=== PATIENT | female | born 1980 | race Caucasian/White ===

== ENCOUNTER 2021-06-08 14:43 | Outpatient (CLI) | payer OTHER, SELFPAY ==
[2021-06-08 15:34] LABS: Basophils Absolute Auto 0.1 K/mm3 (0.0-0.1); Eosinophils Absolute Auto 0.2 K/mm3 (0-0.3); Eosinophils Percent Auto 2.4 % (0-4.4); Hematocrit 38.6 % (37.0-47.0); Hemoglobin 12.2 g/dL (12.0-15.0); Immature Granulocyte Absolute 0.03 K/mm3 (0.00-0.031); Immature Granulocyte Percent A 0.4 % (0-0.5); Lymphocytes Absolute Auto 1.67 K/mm3 (0.9-3.2); Lymphocytes Percent Auto 21.5 % (18.3-44.2); Mean Corpuscular HGB Conc 31.6 g/dl (32-36); Mean Corpuscular Volume 88.5 fl (80-100); Mean Platelet Volume 11.9 fl (7.4-10.4); Monocytes Absolute Auto 0.7 K/mm3 (0.1-0.6); Monocytes Percent Auto 9.3 % (2.6-8.5); Neutrophils Absolute Auto 5.1 K/mm3 (1.3-6.7); Neutrophils Percent Auto 65.4 % (45.5-73.1); Platelet Count Result 282 k/mm3 (150-375); Red Blood Count 4.36 M/mm3 (4.2-5.4); White Blood Count 7.8 K/mm3 (4.5-10.0)
[2021-06-08 15:59] LABS: Alanine Aminotransferase 18 U/L (4-35); Albumin Level 4.4 g/dL (3.5-5.1); Alkaline Phosphatase 61 U/L (38-126); Anion Gap 9 mmol/L (8-16); Aspartate Amino Transferase 30 U/L (14-36); Bilirubin,Total 0.4 mg/dL (0.2-1.3); Blood Urea Nitrogen 15 mg/dL (7-17); Calcium 9.4 mg/dL (8.4-10.2); Carbon Dioxide 30 mmol/L (22-30); Chloride 100 mmol/L (98-107); Estimated Glomerular Filt Rate > 60; Glucose 85 mg/dL (65-110); Potassium 3.9 mmol/L (3.4-5.0); Sodium 139 mmol/L (137-145)
== END 2021-06-08 14:44 | disposition home or self-care (01) ==
PROVIDERS: PCP Nurse Practitioner Family; Visit Provider Nurse Practitioner Family
DX: Z00.00 Encounter for general adult medical examination without abnormal findings (principal)
CPT/HCPCS: 36415; 80053; 84443; 85025

== ENCOUNTER 2022-01-17 07:16 | Outpatient (CLI) | payer OTHER, SELFPAY ==
--- NOTE | ~2022-01-17 | MM_ITS ---
EXAMINATION: MM screening addis BI w ramírez HISTORY: Screening TECHNIQUE: Craniocaudal and mediolateral oblique 3-D tomosynthesis images were obtained and synthetic 2-D images were generated. CAD analysis was submitted and interpreted. COMPARISON: No prior mammogram is available for comparison at this institution. BREAST PARENCHYMAL COMPOSITION: The breasts are heterogenously dense, which may obscure small masses FINDINGS: There are bilateral breast calcifications, likely benign. There is no evidence of suspiciou s mass, calcification, or architectural distortion to suggest malignancy in either breast. There has been no suspicious interval change. IMPRESSION: 1. Likely benign bilateral breast calcifications. 2. Comparison to previous outside mammograms recommended. BI-RADS Category 0: Incomplete: Needs additional imaging evaluation. Reviewed, dictated and finalized at location A. ICAL PHARMACIST
== END 2022-01-17 07:17 | disposition home or self-care (01) ==
PROVIDERS: PCP Nurse Practitioner Family; Visit Provider Obstetrics & Gynecology
DX: Z12.31 Encounter for screening mammogram for malignant neoplasm of breast (principal); R92.8 Other abnormal and inconclusive findings on diagnostic imaging of breast
CPT/HCPCS: 77063; 77067

== ENCOUNTER 2022-02-08 00:29 | Day surgery (SDC) | payer OTHER, SELFPAY ==
[2022-01-26 14:55] VITALS: BMI 29.6
[2022-02-08 06:17] VITALS: BP 149/73; PULSE 81; RESP 16; TEMP 36.2; O2SAT 96; BMI 29.7
[2022-02-08] MEDS: LACTATED RINGERS 1,000 ML 150 ML IV CONT (06:35)
--- NOTE | 2022-02-08 07:16 | PM.HPGS ---
History of Present Illness History of Present Illness Consent: Risks, benefits, and alternatives have been discussed and questions answered. Patient agrees to proceed with procedure. Chief complaint: urbina's esophagus Narrative: Venecia White is a 42 year old female with gerd controlled with pantoprazole (will have symptom if skips a dose), last EGD 3 years ago. Review of Systems Constitutional: Constitutional: Denies headache(s) and Denies weakness Eyes: Eyes: Denies blurry vision ENT: Reports Normal hearing present, Denies headache(s) and Denies neck pain Cardiovascular: Cardiovascular: Denies chest pain and Denies dyspnea Respiratory: Respiratory: Denies dyspnea Gastrointestinal: Gastrointestinal: Reports no additional gastrointestinal complaints Genitourinary: Genitourinary: Denies dysuria Musculoskeletal: Musculoskeletal: Denies neck pain Integumentary/Breasts: Skin/Breast: Denies dry skin Neurologic: Reports Normal hearing present, Denies headache(s) and Denies weakness Psychiatric: Psychiatric: Denies anxiety Endocrine: Endocrine: Denies change in body appearance Hematologic/Lymphatic: Hematologic/Lymphatic: Denies easy bleeding Allergic/Immunologic: Allergic/Immunologic: Denies urticaria PMF Past Medical History Medical History (Updated 02/08/22 @ 07:16 by Polo Quintero MD) GERD (gastroesophageal reflux disease) Surgical History Surgical History History of hysterectomy (~2012) Family History Family History Mother Hypertension Grandparent Diabetes mellitus Grandparent Esophageal cancer maternal grandmother Social History Social History Smoking status: Never smoker Alcohol intake: current Alcohol use details: occasionnaly Substance use: never Substance use type: does not use Living arrangements: with family Gender identity (if verbalized by the patient): Female Spiritual care concerns: No Meds Home Medications and Allergies Home Medications Medication Instructions Recorded Confirmed Type cholecalciferol (vitamin D3) 50 50 mcg PO DAILY 06/07/21 02/08/22 History mcg (2,000 unit) capsule pantoprazole 40 mg tablet,delayed 40 mg PO QAM 90 Days #90 tablet 12/22/21 02/08/22 Rx release Allergies Allergy/AdvReac Type Severity Reaction Status Date / Time No Known Allergies Allergy Unknown Verified 02/08/22 06:25 Vital Signs Vital Signs - 24 hr 02/08/22 06:17 Temperature 97.2 F L Pulse Rate 81 Respiratory Rate 16 Blood Pressure 149/73 H Pulse Oximetry 96 Exam Const: General: comfortable and no acute distress HENMT: General nose exam: Normal nares present Eyes: General: appearance normal, both eyes and all related structures Neck: Neck: no JVD Resp: Auscultation: clear to auscultation bilaterally Cardio: Rate: regular rate Rhythm: regular rhythm GI: Inspection: non-distended GI Palp: Yes Soft to palpation Skin: General skin exam: normal color Neuro: General: gait normal Speech: normal speech Extrem: General: normal to inspection Psych: Mental Status: mental status grossly normal Assessment and Plan Assessment and plan (1) GERD (gastroesophageal reflux disease): Qualifiers: Esophagitis presence: esophagitis presence not specified Qualified Code(s): K21.9 - Gastro-esophageal reflux disease without esophagitis Code(s): K21.9 - Gastro-esophageal reflux disease without esophagitis Status: Acute Assessment and Plan: egd with bx, already on ppi.
--- NOTE | 2022-02-08 07:22 | P.PNAN_ITS ---
Anes - Initial Pre Proc Eval Procedure: Operation Date: 02/08/22 07:30 Proposed Procedures p Esophagogastroduodenoscopy - Polo Quintero MD Date/Time: 02/08/22 07:22 Surgeon: Polo Quintero MD Pre Op Diagnosis: urbina's esophagus Patient Data Age: 42 Gender: F Height: 1.6 m Weight: 76.3 kg Last Vital Signs Temp 97.2 F L 02/08/22 06:17 Pulse 81 02/08/22 06:17 Resp 16 02/08/22 06:17 BP 149/73 H 02/08/22 06:17 Pulse Ox 96 02/08/22 06:17 Allergies Allergy/AdvReac Type Severity Reaction Status Date / Time No Known Allergies Allergy Unknown Verified 02/08/22 06:25 Home Medications Medication Instructions Recorded Confirmed Type cholecalciferol (vitamin D3) 50 50 mcg PO DAILY 06/07/21 02/08/22 History mcg (2,000 unit) capsule pantoprazole 40 mg tablet,delayed 40 mg PO QAM 90 Days #90 tablet 12/22/21 02/08/22 Rx release Patient hx anesthesia problems: none Family hx anesthesia problems: none Results Review: All pre-operative results and documents have been reviewed as part of the pre-operative evaluation. [facility] Past Medical History Medical History (Updated 02/08/22 @ 07:16 by Polo Quintero MD) GERD (gastroesophageal reflux disease) Surgical History Surgical History History of hysterectomy (~2012) Family History Family History Mother Hypertension Grandparent Diabetes mellitus Grandparent Esophageal cancer maternal grandmother Social History Social History Smoking status: Never smoker Alcohol intake: current Alcohol use details: occasionnaly Substance use: never Substance use type: does not use Living arrangements: with family Gender identity (if verbalized by the patient): Female Spiritual care concerns: No Anes - Eval Final PreProcedure Day of Procedure 02/08/22 07:22 Patient weight: overweight Heart: regular rate and rhythm Lungs: clear to auscultation Airway: Mallampati scale class II Neurological: alert and oriented Last oral intake: >/= 8 hours ASA classification: II Emergent: no Anesthetic plan: proceed Anesthesia type and monitoring: general GIVS and standard monitoring Results Review: All pre-operative results and documents have been reviewed as part of the pre-operative evaluation. Informed Consent: The patient's anesthetic plan and its attendant risks and benefits were discussed with the patient/family/POA. Questions were solicited and answers provided to the satisfaction of the patient/family/POA.
[2022-02-08 07:41] VITALS: BP 105/64; PULSE 79; RESP 17; O2SAT 99
[2022-02-08 07:51] VITALS: BP 125/83; PULSE 71; RESP 18; O2SAT 99
[2022-02-08 08:01] VITALS: BP 134/84; PULSE 74; RESP 17; O2SAT 100
== END 2022-02-08 08:11 | disposition home or self-care (01) ==
PROVIDERS: PCP Nurse Practitioner Family; Visit Provider Internal Medicine Gastroenterology
PROC: 0DJ08ZZ Inspection of Upper Intestinal Tract, Via Natural or Artificial Opening Endoscopic (ICD-10-PCS; CPT 43235; principal; 2022-02-08 07:30)
DX: K21.9 Gastro-esophageal reflux disease without esophagitis (principal); K44.9 Diaphragmatic hernia without obstruction or gangrene; K29.50 Unspecified chronic gastritis without bleeding
CPT/HCPCS: 43239; 88305; J2001; J2704; J7120

== ENCOUNTER → 2022-02-14 08:39 | Outpatient (CLI) | payer OTHER, SELFPAY ==
--- NOTE | ~2022-02-14 | MMUS_ITS ---
EXAMINATION: MM diagnostic addis RT w ramírez, US breast RT complete HISTORY: Follow-up right breast asymmetries TECHNIQUE: Additional 3-D tomosynthesis images of the right breast were performed and synthetic 2-D i mages were generated. CAD analysis was submitted and interpreted. High resolution complete right [address] ultrasound was performed. COMPARISON: 01/17/2022 and 01/11/2021 BREAST PARENCHYMAL COMPOSITION: The breasts are heterogenously dense, which may obscure small masses FINDINGS: MAMMOGRAPHIC FINDINGS: There are persistent asymmetries in the upper central right breast which appear new. No suspicious ca lcifications or architectural distortion. ULTRASOUND: Complete right US of all 4 quadrants of the right breast and retroareolar region was reviewed. At 12: 00, 9 cm from the nipple there is heterogeneous soft tissue without discrete mass. At 10:00, 8 cm fro m the nipple there is an oval circumscribed hypoechoic mass with parallel orientation, no posterior f eatures and no internal vascularity measuring 8 mm maximum dimension. At 11:00, 5 cm from the nipple there is a 7 mm mass with some angular margins and internal echogenic foci, possibly calcification. T here is mixed posterior attenuation. No internal vascularity. IMPRESSION: 1. Slightly irregular shaped hypoechoic right breast mass at 11:00, 5 cm from the nipple measuring 7 mm. Remainder of the findings in the right breast by ultrasound are likely benign. Six-month follow-u p right mammogram and ultrasound recommended to assess stability of these structures. 2. Ultrasound-guided right breast biopsy recommended. BI-RADS category 4, suspicious findings. Reviewed, dictated and finalized at location A. IMPRESSION: 1. Slightly irregular shaped hypoechoic right breast mass at 11:00, 5 cm from t he nipple measuring 7 mm. Remainder of the findings in the right breast by ultr asound are likely benign. Six-month follow-up right mammogram and ultrasound re commended to assess stability of these structures. 2. Ultrasound-guided right breast biopsy recommended. BI-RADS category 4, suspicious findings.
== END ==
PROVIDERS: PCP Nurse Practitioner Family; Visit Provider Obstetrics & Gynecology
DX: R92.8 Other abnormal and inconclusive findings on diagnostic imaging of breast (principal)
CPT/HCPCS: 76641; 77061; 77065; G0279

== ENCOUNTER 2022-03-01 09:13 | Outpatient (CLI) | payer OTHER, SELFPAY ==
--- NOTE | ~2022-03-01 | MMUS_ITS ---
EXAMINATION: US GUIDED NEEDLE BIOPSY DATE: 03/01/2022 11:26 CDT INDICATION: Slightly irregularly-shaped hypoechoic 11:00 right 7 mm breast mass TECHNIQUE AND FINDINGS: The risks and potential benefits of the procedure were discussed with the patient, and written inform ed consent was obtained. Timeout procedure was performed. After sterile preparation of the right [address], 1% lidocaine was utilized for local anesthesia. A 14G spring-loaded biopsy gun needle was advanced to the edge of the region of interest from a super omedial approach utilizing sonographic guidance. A total of three tissue core samples were obtained through the lesion. An Inrad tissue marker clip was then placed at the biopsy site. Hemostasis was a chieved. A sterile bandage was applied. The patient tolerated procedure well and there was no evidence of immediate complication. The patien t was given verbal instructions prior to departing from the department. A two view mammogram was perf ormed to document tissue marker clip placement. The tissue samples were submitted to surgical patholo gy for histologic analysis. IMPRESSION: 1. Successful ultrasound guided biopsy of right 11:00 breast mass with biopsy marker placement. Plea se refer to pathology report for histologic analysis. Reviewed, dictated and finalized at Location [facility]. Reviewed, dictated and finalized at location A. IMPRESSION: 1. Successful ultrasound guided biopsy of right 11:00 breast mass with biopsy marker placement. Please refer to pathology report for histologic analysis.
== END 2022-03-01 09:14 | disposition home or self-care (01) ==
LOC: ANHIMG 09:14
PROVIDERS: PCP Nurse Practitioner Family; Visit Provider Surgery
DX: N63.10 Unspecified lump in the right breast, unspecified quadrant (principal)
CPT/HCPCS: 19083; 88305; A4648

== ENCOUNTER 2023-08-21 08:17 | Outpatient (CLI) | payer OTHER, SELFPAY ==
--- NOTE | ~2023-08-21 | MM_ITS ---
EXAMINATION: MM screening addis BI w ramírez HISTORY: Screening mammogram TECHNIQUE: Craniocaudal and mediolateral oblique 3-D tomosynthesis images were obtained and synthetic 2-D images were generated. CAD analysis was submitted and interpreted. COMPARISON: March 01, 2022 right ultrasound-guided breast biopsy at 11:00 February 14, 2022 diagnostic right mammogram and complete right breast ultrasound examination January 17, 2022, January 11, 2021 bilateral screening mammogram examinations BREAST PARENCHYMAL COMPOSITION: There are scattered areas of fibroglandular density. FINDINGS: There is a biopsy marker on the right. There is a biopsy marker on the left. No history of malignancy of either breast. Numerous grouped circulation oval benign-appearing microcalcifications are noted in the posterior upp er outer left breast. There is no evidence of suspicious mass, calcification, or architectural distor tion to suggest malignancy in either breast. There has been no suspicious interval change. IMPRESSION: 1. Benign findings. No mammographic evidence of malignancy. 2. Recommend routine screening mammography in one year. BI-RADS Category 2: Benign finding(s). Reviewed, dictated and finalized at location A.
== END 2023-08-21 08:18 | disposition home or self-care (01) ==
LOC: ANHIMG 08:18
PROVIDERS: Visit Provider Obstetrics & Gynecology
DX: Z12.31 Encounter for screening mammogram for malignant neoplasm of breast (principal)
CPT/HCPCS: 77063; 77067

== ENCOUNTER → 2023-08-29 15:21 | Outpatient (CLI) | payer OTHER, SELFPAY ==
--- NOTE | ~2023-08-29 | XR_ITS ---
XR knee LT 3V DATE: 08/29/2023 15:42 INDICATION: Posterior knee pain. No known injury. TECHNIQUE: AP, lateral, sunrise views COMPARISON: None FINDINGS: No fracture or dislocation or joint effusion. No periosteal reaction or bone destruction. J oint spaces are well preserved. No radiopaque intra-articular loose body or chondrocalcinosis. IMPRESSION: Negative Reviewed, dictated and finalized at location A. IMPRESSION: Negative
== END ==
PROVIDERS: PCP Nurse Practitioner Family; Visit Provider Nurse Practitioner Family
DX: M25.562 Pain in left knee (principal)
CPT/HCPCS: 73562

== ENCOUNTER 2023-11-02 15:00 | Outpatient (RCR) | payer OTHER, SELFPAY ==
--- NOTE | 2023-09-07 09:57 | OPREHPOC ---
Outpatient Therapy Plan of Care This is a Multidisciplinary Plan of Care that may contain components documented by all disciplines (PT, OT, and ST.) PT Problem 1 PT Problem #1 Knowledge Deficit PT Goal 1 Goal 1. Patient will perform independent HEP 2. Patient will verbalize urge suppression techniques. Target Visit 9 PT Problem 2 PT Problem #2 Pain PT Goal 1 Goal 1. Patient able to do all ADL's with knee pain no higher than 1/10 2. No pain with pelvic exam Target Visit 9 PT Problem 3 PT Problem #3 Impaired Strength PT Goal 1 Goal 1. Improve pelvic floor strength to 3/5 and endurance to 10 seconds to decrease incontinence 2. Improve all LE MMT to 5/5 to support knee with stairs and other activities Target Visit 9 PT Problem 4 PT Problem #4 Impaired Functional ADLs PT Goal 1 Goal 1. Patient will report no more than 1 instance of incontinence per month Target Visit 9
--- NOTE | 2023-09-07 09:57 | PTOPEVAL1 ---
Assessment and note entered by Dina Alston DPT Evaluation Information Assessment Status Evaluation Subjective Information Pt reports she is having incontinence and left knee pain. Pt reports incontinence since her hysterectomy 10 years ago but is worsening. Incontinence happens daily and is a few drops at a time- has been occurring with coughing, sneezing, laughing, running. Voids 10 times a day and 1 time at night. Denies pain with urination. Can hold urge 5 minutes before needing to void. Wears pads occasionally and has had to change clothes due to the incontinence. BM every other day, states she does have some constipation issues. Denies pain or fecal incontinence. Denies history of pelvic pain. Pt has been 2 times with vaginal deliveries and no complications. Pt reports feeling anxiety about the incontinence and will void before certain activities, has had to leave meetings due to the incontinence. Pt reports left knee pain 4-5/10 highest and lowest 1/10 recently. Pain started a few weeks ago . Has been working out with a puppy trainer and increasing the weights she has been lifting. Within the last few weeks she lifted her leg up and down off the couch and noticed 2 pops, states they were very painful at the time. Has had x-rays which were negative. Pain increases with general movement even a few minutes on a bike or navigating stairs. Also reports it feels weaker and less stable than her other side. Patient goal: less incontinence and feel less anxiety around it. Decrease knee pain and get back to normal level of working out and walking for exercise. Reported Pain Level Pain Score 2: Self Report Assessment PT Clinical Summary The patient is presenting to skilled therapy with urinary incontinence and pelvic pain on exam as well as left knee pain. She presents with significantly decreased pelvic floor strength/ endurance and increased muscle tone, as well as decreased LE strength and functional strength impairments which are contributing to her incontinence and knee pain with activities like navigating stairs. She will highly benefit from therapy to address these impairments in order to reduce pain, reduce
--- NOTE | 2023-10-06 10:35 | OPREHPOC ---
Outpatient Therapy Plan of Care This is a Multidisciplinary Plan of Care that may contain components documented by all disciplines (PT, OT, and ST.) PT Problem 1 PT Problem #1 Knowledge Deficit PT Goal 1 Goal 1. Patient will perform independent HEP 2. Patient will verbalize urge suppression techniques. Target Visit 9 Progress Partially Met PT Problem 2 PT Problem #2 Pain PT Goal 1 Goal 1. Patient able to do all ADL's with knee pain no higher than 1/10 2. No pain with pelvic exam Target Visit 9 Progress Partially Met PT Problem 3 PT Problem #3 Impaired Strength PT Goal 1 Goal 1. Improve pelvic floor strength to 3/5 and endurance to 10 seconds to decrease incontinence 2. Improve all LE MMT to 5/5 to support knee with stairs and other activities Target Visit 9 Progress Partially Met Comment all met except left knee flexion and hip extension roberto carlos PT Problem 4 PT Problem #4 Impaired Functional ADLs PT Goal 1 Goal 1. Patient will report no more than 1 instance of incontinence per month Target Visit 9 Progress Partially Met Comment 1-2 in the last week
--- NOTE | 2023-10-06 10:36 | PTOPPROG ---
Assessment and note entered by Dina Alston DPT Evaluation Information Assessment Status Progress Subjective Information Pt reports she has had 2 instances of popping in her posterior knee in the past week but it is not as significantly painful as it was originally. Highest pain in the last week 2/10 and lowest 0/10 . Overall is feeling better with therapy, her pain has decreased and she is not having to take OTC meds anymore. Has not tried to go to the gym in the past few weeks. Doing her normal ADL's except trying to avoid heavier lifting. States she sneezed yesterday without any incontinence. 1-2 instances of incontinence in the last week and very small volumes. Can hold urge to void at least 30 minutes. Assessment PT Clinical Summary The patient has made good progress overall in therapy. She reports decreased knee pain and demonstrates improved LE strength and stair pattern. She continues to have some tenderness to palpation and hamstring weakness contributing to her pain and difficulty performing all activities like heavy lifting and returning to exercise. She also reports greatly decreased frequency and volume of incontinence and demonstrates improved pelvic floor strength and endurance. Due to her progress plan to continue therapy to focus primarily on knee pain and return to full function . Plan of Care Interventions Electrical Stimulation,Gait Training,Hot Pack/Cold Pack,Manual Therapy,Neuro Re-education,Patient/ Caregiver Education,Therapeutic Activities, Therapeutic Exercise PT Services Indicated Yes Treatment Frequency and 1-2 times a week for 4-8 visits Duration These treatments will address the objective and functional deficits as defined above. The patient will be advanced safely and appropriately in order for the patient to progress towards his/her prior level of function. Additional exercises will be introduced and as well as a comprehensive home exercise program upon discharge, if needed, ?to ensure carryover of functional gains achieved in the clinic. This treatment plan has been reviewed and agreement upon by the patient.
--- NOTE | 2023-10-27 08:56 | PCPTNOTE ---
Patient called to cancel appointment 10/27/23 due to work conflict.
--- NOTE | 2023-11-02 15:29 | OPREHPOC ---
Outpatient Therapy Plan of Care This is a Multidisciplinary Plan of Care that may contain components documented by all disciplines (PT, OT, and ST.) PT Problem 1 PT Problem #1 Knowledge Deficit PT Goal 1 Goal 1. Patient will perform independent HEP 2. Patient will verbalize urge suppression techniques. Target Visit 9 Progress Met PT Problem 2 PT Problem #2 Pain PT Goal 1 Goal 1. Patient able to do all ADL's with knee pain no higher than 1/10 2. No pain with pelvic exam Target Visit 9 Progress Partially Met PT Problem 3 PT Problem #3 Impaired Strength PT Goal 1 Goal 1. Improve pelvic floor strength to 3/5 and endurance to 10 seconds to decrease incontinence 2. Improve all LE MMT to 5/5 to support knee with stairs and other activities Target Visit 9 Progress Partially Met Comment all met except hip extension roberto carlos PT Problem 4 PT Problem #4 Impaired Functional ADLs PT Goal 1 Goal 1. Patient will report no more than 1 instance of incontinence per month Target Visit 9 Progress Partially Met
--- NOTE | 2023-11-02 15:29 | PTOPDC ---
Assessment and note entered by Dina Alston DPT Evaluation Information Assessment Status Discharge Subjective Information Highest pain 2/10 in the last week and lowest 0/10 . States she has been able to get back to the gym more consistently and is noticing her pain much less often, just with deep flexion like to get in/ out of her high bed. Also reports her incontinence has improved, sneezed 3 times earlier without incontinence. Reported Pain Level Pain Score 0: Self Report Assessment PT Clinical Summary The patient has made excellent progress in therapy and reports greatly decreased intensity and frequency of pain. She has been able to perform all activities including exercising. She demonstrates improved walking speed, LE strength, and stair pattern. She also reports greatly decreased urinary incontinence. Due to her progress, plan to discharge to [facility] this visit. She has been educated to follow up with PT and/or MD as needed. Plan of Care PT Services Indicated No
== END 2023-11-02 16:03 | disposition home or self-care (01) ==
LOC: ANHPT 15:00
PROVIDERS: PCP Nurse Practitioner Family; Referring Provider Nurse Practitioner Family; Visit Provider Obstetrics & Gynecology
DX: R10.2 Pelvic and perineal pain (principal); M25.562 Pain in left knee
CPT/HCPCS: 97110; 97112; 97140; 97161; 97530

== ENCOUNTER 2024-02-02 08:47 | Emergency (ER) | payer OTHER, SELFPAY ==
--- NOTE | 2024-02-02 08:49 | ED.URI ---
HPI - URI/Sore Throat General Chief Complaint: Upper Respiratory Infection Stated Complaint: Cough/Fatigue Time Seen by Provider: 02/02/24 08:48 Source: patient Mode of arrival: ambulatory Limitations: no limitations History of Present Illness HPI Narrative: Patient is a 44-year-old female that presents with cough, fatigue, sore throat. Patient was diagnosed with COVID 2 weeks ago, did have a few days of feeling normal before symptoms restarted. She patient has been taking [id number] medications with no relief. Denies any fever, chills, nausea, vomiting, diarrhea. Patient is a home health nurse. Related Data Home Medications Medication Instructions Recorded Confirmed cholecalciferol (vitamin D3) 50 50 mcg PO DAILY 06/07/21 02/02/24 mcg (2,000 unit) capsule Allergies Allergy/AdvReac Type Severity Reaction Status Date / Time No Known Allergies Allergy Unknown Verified 02/02/24 08:58 Review of Systems Review of Systems: All systems reviewed & are unremarkable except as noted in HPI and below Constitutional: Constitutional: Denies body ache(s), Denies chills, Reports fatigue, Denies fever(s), Denies headache(s), Denies malaise and Denies weakness Eyes: Eyes: Denies blurry vision, Denies itchy eyes and Denies loss of vision ENT: Denies otalgia, Denies headache(s), Denies nasal congestion, Denies sinus pain and Reports sore throat Cardiovascular: Cardiovascular: Denies chest pain, Denies irregular heart rhythm and Denies dyspnea Respiratory: Respiratory: Reports cough and Denies dyspnea Gastrointestinal: Gastrointestinal: Denies abdominal pain, Denies diarrhea, Denies nausea and Denies vomiting Musculoskeletal: Musculoskeletal: Denies back pain, Denies myalgias and Denies arthralgias Integumentary/Breasts: Skin/Breast: Denies pruritus and Denies rash Neurologic: Denies headache(s), Denies loss of vision and Denies weakness Psychiatric: Psychiatric: Reports no additional psychiatric complaints Endocrine: Endocrine: Denies fatigue Allergic/Immunologic: Allergic/Immunologic: Denies itchy eyes PMFSH Past Medical History Medical History GERD (gastroesophageal reflux disease) Surgical History Surgical History History of hysterectomy (~2012) Hx of left breast biopsy Left breast biopsy x2 (benign) January 2020 Family History Family History Mother Hypertension Grandparent Diabetes mellitus Grandparent Esophageal cancer maternal grandmother Grandparent Non Hodgkin's lymphoma Hypertension Social History Social History Smoking status: Former smoker Alcohol intake: current Alcohol use details: occasionnaly Substance use: never Substance use type: does not use Lack of Transportation: No Lack of Food: Never True Current Housing: I Have Housing Concerned About Future Housing: No Difficulty Paying Gas/Electric Bills: No Difficulty Paying for Meds: No Currently Unemployed: No Education: Bachelor's Degree Difficulty w/ Childcare or Family Care: No Living arrangements: alone Occupation/Education: occupation Additional occupation/education comments: RN Gender identity (if verbalized by the patient): Female Spiritual care concerns: No Agree to blood products: Yes Comments At time of signature, agree with nursing past medical, surgical, social and family history. There is no relevant family history pertinent to the presenting complaint. Exam Const: General: cooperative, healthy appearing, comfortable, no acute distress and well nourished Nutritional Appearance: well nourished Orientation/consciousness: patient oriented x3 Limitations: no limitations HENMT: Head: normal to inspection, normocephalic and atraumatic Ears: hearing g
[2024-02-02 08:57] VITALS: BP 118/84; PULSE 97; RESP 16; TEMP 36.6; O2SAT 100
[2024-02-02 08:58] VITALS: BP 118/84; PULSE 97; RESP 16; TEMP 36.6; O2SAT 100
== END 2024-02-02 09:44 | disposition home or self-care (01) ==
PROVIDERS: Emergency Provider Nurse Practitioner Family
DX: J06.9 Acute upper respiratory infection, unspecified (principal); Z87.891 Personal history of nicotine dependence; K21.9 Gastro-esophageal reflux disease without esophagitis
CPT/HCPCS: 87804; 99213; G0463

== ENCOUNTER 2024-09-10 08:28 | Emergency (ER) | payer OTHER, SELFPAY ==
--- NOTE | 2024-09-10 08:33 | ED.URI ---
HPI - URI/Sore Throat General Chief Complaint: Upper Respiratory Infection Stated Complaint: Sore Throat Time Seen by Provider: 09/10/24 08:37 Source: patient, RN notes reviewed and old records reviewed Mode of arrival: ambulatory Limitations: no limitations History of Present Illness HPI Narrative: Patient presents with complaints of sore throat. She reports that symptoms began about 10 days ago with a runny nose, and sore throat has been present for 5-7 days. She has been using Flonase, taking Tylenol and ibuprofen. She reports minimal relief with these medications. She reports postnasal drainage, worsening sore throat over the past couple of days. Says now it hurts to swallow. She is however still able to manage her own secretions, no drooling or stridor noted. She reports 1 episode of vomiting drainage this morning. Otherwise denies any abdominal complaints. She has no other concerns or complaints today. Related Data Allergies Allergy/AdvReac Type Severity Reaction Status Date / Time No Known Allergies Allergy Unknown Verified 09/10/24 08:34 Review of Systems Review of Systems: All systems reviewed & are unremarkable except as noted in HPI and below Constitutional: Constitutional: Reports no additional constitutional complaints ENT: Reports system reviewed and no additional complaints, except as documented, Reports as per HPI, Reports post nasal drip and Reports sore throat Cardiovascular: Cardiovascular: Reports no additional cardiovascular complaints Respiratory: Respiratory: Reports no additional respiratory complaints and Reports cough Gastrointestinal: Gastrointestinal: Reports as per HPI, Reports no additional gastrointestinal complaints, Denies nausea and Reports vomiting (One episode, drainage) PMFSH Past Medical History Medical History GERD (gastroesophageal reflux disease) Surgical History Surgical History History of hysterectomy (~2012) Hx of left breast biopsy Left breast biopsy x2 (benign) January 2020 Family History Family History Mother Hypertension Grandparent Diabetes mellitus Grandparent Esophageal cancer maternal grandmother Grandparent Non Hodgkin's lymphoma Hypertension Social History Social History Smoking status: Former smoker Alcohol intake: current Alcohol use details: occasionnaly Substance use: never Substance use type: does not use Lack of Transportation: No Lack of Food: Never True Current Housing: I Have Housing Concerned About Future Housing: No Difficulty Paying Gas/Electric Bills: No Difficulty Paying for Meds: No Currently Unemployed: No Education: Bachelor's Degree Difficulty w/ Childcare or Family Care: No Living arrangements: alone Occupation/Education: occupation Additional occupation/education comments: RN Gender identity (if verbalized by the patient): Female Spiritual care concerns: No Agree to blood products: Yes Comments At the time of my signature, I reviewed and agree with the nursing past medical, surgical, social, and family history. There is no relevant family history pertinent to the patient complaint. Exam Const: General: cooperative, no acute distress, alert and awake Orientation/consciousness: oriented to person, oriented to place and oriented to time HENMT: Head: normal to inspection Ears: TM's normal bilaterally Face and sinus: sinus tenderness frontal Mouth: Yes moist mucous membranes Throat: posterior oropharynx abnormal erythema Resp: Effort & Inspection: normal respiratory effort and able to speak in complete sentences Auscultation: clear to auscultation bilaterally, no crackles, no rales, no rhonchi and no wheezes Cardio: Palpation: normal PMI Rate: regular rate Rhythm: regular rhythm Heart sounds: S1 normal heart sound present and S2 normal heart sound present Neuro: General: oriented to person, oriented to place and oriented to time Cranial nerves: Yes CN's II-XII intact bilaterally Psych: Appearance: grossly normal Thought process: Normal thought process present Insight: Good insight present (Psych) Judgement: Good judgement present (Psych) Course Course Level of Care: Express Care Visit Vital Signs Vital signs: Reviewed MDM - URI/Sore Throat MDM Narrative Medical decision making narrative: History and exam consistent with sinusitis. Treat with Augmentin. Patient is nontoxic appearing, stable for discharge home. Discharge instructions reviewed with patient, as well as provided in writing per nursing staff. The instructions also include specific and strict return/GO TO THE ER as well as f/u information. All questions have been answered, and the patient deny any further questions with discharge and discharge plan. Some parts of this dictation were generated by voice recognition software and may contain typographical and/or grammatical inaccuracies. Differential Diagnosis Differential diagnosis: Likely upper respiratory infection, otitis media, sinusitis, viral infection and pharyngitis Medical Records Attestation: I reviewed the patient's medical records. Discharge Plan Discharge Clinical Impression: Sinusitis Qualifiers: Sinusitis location: frontal Chronicity: acute Recurrence: not specified as recurrent Qualified Code(s): J01.10 - Acute frontal sinusitis, unspecified Patient Disposition: Home, Self-Care Condition: Stable Instructions: Antibiotic Form, Sinusitis (ED) Additional Instructions: Take all medications as prescribed. Plenty of rest and fluids. Follow-up with primary care provider. Emergency department for new or worse symptoms Patient Language: Maldivian Prescriptions: New amoxicillin-pot clavulanate 875-125 mg tablet 1 tablet PO Q12H Qty: 20 0RF No Action pantoprazole 40 mg tablet,delayed release (DR/EC) See Rx Instructions .ROUTE .COMPLEX Qty: 90 3RF Dose Instruction: TAKE 1 TABLET BY MOUTH IN THE MORNING Rx Instructions: TAKE 1 TABLET BY MOUTH IN THE MORNING Follow-up/Referrals: Michael Sandoval MD [Primary Care Provider] - 2 Weeks Time of Disposition: 08:51
[2024-09-10 08:36] VITALS: BP 122/75; PULSE 90; RESP 15; TEMP 36.7; O2SAT 100
== END 2024-09-10 08:56 | disposition home or self-care (01) ==
PROVIDERS: Emergency Provider Nurse Practitioner Family; PCP Family Medicine
DX: J01.10 Acute frontal sinusitis, unspecified (principal); Z87.891 Personal history of nicotine dependence; K21.9 Gastro-esophageal reflux disease without esophagitis
CPT/HCPCS: 99213; G0463

== ENCOUNTER 2024-12-27 08:15 | Outpatient (CLI) | payer BC, SELFPAY ==
--- NOTE | ~2024-12-27 | MM_ITS ---
EXAMINATION: MM screening addis BI w ramírez HISTORY: Screening TECHNIQUE: Craniocaudal and mediolateral oblique 3-D tomosynthesis images were obtained and synthetic 2-D images were generated. CAD analysis was submitted and interpreted. COMPARISON: Comparison to multiple prior studies sequentially, with oldest reviewed study dated 05/2022. BREAST PARENCHYMAL COMPOSITION: Not dense: There are scattered areas of fibroglandular density. FINDINGS: There is a small focal asymmetry in the right breast laterally on CC view, anterior third. There is possible architectural distortion in the lateral aspect of the left breast, seen on CC view. IMPRESSION: 1. New right breast asymmetry. Possible architectural distortion left breast. 2. Additional mammographic views and possible breast ultrasound are recommended. BI-RADS Category 0: Incomplete: Needs additional imaging evaluation. Reviewed, dictated and finalized at location B. WORKING MACHINE OFFBEARER IMPRESSION: 1. New right breast asymmetry. Possible architectural distortion left breast. 2. Additional mammographic views and possible breast ultrasound are recommended . BI-RADS Category 0: Incomplete: Needs additional imaging evaluation.
== END 2024-12-27 08:16 | disposition home or self-care (01) ==
PROVIDERS: PCP Family Medicine; Visit Provider Obstetrics & Gynecology
DX: Z12.31 Encounter for screening mammogram for malignant neoplasm of breast (principal); R92.8 Other abnormal and inconclusive findings on diagnostic imaging of breast
CPT/HCPCS: 77063; 77067

== ENCOUNTER 2024-12-31 10:42 | Outpatient (CLI) | payer BC, SELFPAY ==
--- NOTE | ~2024-12-31 | MMUS_ITS ---
EXAMINATION: MM diagnostic addis BI w ramírez, US breast LT limited HISTORY: Follow-up breast asymmetries. TECHNIQUE: Additional 3-D tomosynthesis images of the breasts were performed and synthetic 2-D images were generated. CAD analysis was submitted and interpreted. High resolution Limited left breast ultr asound was performed. COMPARISON: Comparison to multiple prior studies sequentially, with oldest reviewed study dated 05/2022. BREAST PARENCHYMAL COMPOSITION: Not dense: There are scattered areas of fibroglandular density. FINDINGS: MAMMOGRAPHIC FINDINGS: The right breast is stable without evidence for malignancy. There are persistent asymmetries in the u pper outer quadrant of the left breast, although no discrete mass or architectural distortion is seen . There are benign clustered left breast calcifications unchanged. ULTRASOUND: Limited left breast ultrasound: At 2:00, 11 cm from the nipple there is a 7 mm intramammary lymph nod e. At 3:00, 2 cm from the nipple there is a cluster of cysts. No suspicious masses to suggest maligna ncy. IMPRESSION: 1. No evidence for malignancy in either breast. Benign findings. 2. . Routine yearly screening mammogram and regular clinical breast examination are recommended. BI-RADS Category 2: Benign finding(s). Reviewed, dictated and finalized at location B. STED LIVING ADMINISTRATOR IMPRESSION: 1. No evidence for malignancy in either breast. Benign findings. 2. . Routine yearly screening mammogram and regular clinical breast examination are recommended. BI-RADS Category 2: Benign finding(s).
== END 2024-12-31 10:43 | disposition home or self-care (01) ==
PROVIDERS: PCP Family Medicine; Visit Provider Obstetrics & Gynecology
DX: R92.8 Other abnormal and inconclusive findings on diagnostic imaging of breast (principal)
CPT/HCPCS: 76642; 77062; 77066; G0279